=== PATIENT | male | born 1950 | race Caucasian/White ===

== ENCOUNTER 2019-09-28 11:03 | Outpatient (CLI) | payer OTHER, SELFPAY ==
[2019-09-28 11:55] LABS: Basophils # 0.1 10^3/uL (0.0-0.1); Basophils % 0.6 %; Eosinophils # 0.9 10^3/uL (0.0-0.8); Eosinophils % 6.4 %; Hematocrit 45.6 % (42.0-52.0); Lymphocytes # 4.5 10^3/uL (0.8-4.8); Mean Corpuscular HGB Conc 30.7 g/dL (30.0-36.0); Mean Corpuscular Hemoglobin 29.4 pg (28.0-34.0); Mean Corpuscular Volume 95.8 fL (80-94); Monocytes # 0.9 10^3/uL (0.2-0.9); Monocytes % 6.7 %; Neutrophils # 7.2 10^3/uL (1.8-7.7); Neutrophils % 52.9 %; Nucleated Red Blood Cells % 0 %; Platelet Count 412 10^3/cmm (130-400); Red Blood Count 4.76 10^6/uL (4.1-5.3); Red Cell Distribution Width 13.8 % (12.1-15.1); White Blood Count 13.5 10^3/uL (4.0-10.0)
--- NOTE | 2019-09-28 15:57 | ONC FU_ITS ---
Dr. Augustine follow up note Patient: Frankie Corcoran Unit #: [id number]: 1950 Dicatated By: Debby Augustine M.D.Date of Visit:Sep 28, 2019 Onc Med Follow-up/Prog Note History of Present Illness: Mr. 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 Patient denies any night sweats, patient denies any fever chills, denies any weight loss, denies any left abdominal fullness or discomfort, denies any peripheral lymphadenopathy denies any history of jaundice, denies any history of petechiae or ecchymosis. Has history of chronic arthritis Involving back otherwise no small joint involvement Abdominal sonogram done on 07/01/2019 showed no splenomegaly. Moderate hepatomegaly with mild steatosis. Came for follow-up, denies any specific complaints, no fever or chills, no nausea vomiting, no night sweats, no nosebleed or gum bleeding no petechia or ecchymosis, appetite is good. No peripheral lymphadenopathy. Medications: Aspirin Adult 1 Tablet (of 325 mg) Oral daily, Atorvastatin Calcium 0.5 Tablet (of 80 mg) Oral daily, Cholecalciferol 1 Tablet (of 2000 Units) Oral daily, Fish Oil 1 Capsule (of 1000 mg) Oral b.i.d., Gabapentin 1 Capsule (of 300 mg) Oral t.i.d., Loratadine 1 Tablet (of 10 mg) Oral daily, metFORMIN HCl 1 Tablet (of 1000 mg) Oral b.i.d., NovoLOG Mix 70/30 60 Units (of (70-30) 100 Units/mL) Subcutaneous ac pm, NovoLOG Mix 70/30 90 Units (of (70-30) 100 Units/mL) Subcutaneous every am, Prazosin HCl 1 Capsule (of 1 mg) Oral at bedtime, Salicylic Acid 1 (17 %) Gel (jelly) Topical daily, Sertraline HCl 1.5 Tablet (of 100 mg) Oral daily, Urea 1 (10 %) Cream Topical b.i.d. Allergies: No Known Allergies. Review of Systems: Constitutional - Appetite is good and weight is stable. No fever, chills, hot flashes. Positive for occasional night sweats. Energy level is good today, ENMT - No sinus congestion/drainage. No mouth sores. No difficulty swallowing. Positive for sore throat, Hematologic/Lymphatic - Pt reports easy bruising, Respiratory - Positive for shortness of breath. No cough. No pleuritic pain or hemoptysis, Cardiovascular - No angina pain. No palpitations, Gastrointestinal - No nausea or vomiting. No heartburn or acid reflux. No diarrhea or constipation. No blood in the stool or black stools, Genitourinary (M) - No dysuria or hematuria. No urinary frequency. No urgency or incontinence, Musculoskeletal - Positive for joint pain, Neurologic - No headache. Positive for dizziness and numbness in extremities, Psychiatric - No anxiety or depression. Positive for insomnia. Vital Signs: Performed on Sep 28, 2019 13:29 Height - 66.00 in Weight - 262.2 lbs (LOW) BSA - 2.24 sq.m BMI - 42.32 (HIGH) Temperature - 98.0 F (LOW) Pulse - 100 /min Respiration - 24 /min BP - 134/62 mm(hg) O2 Sat - 95 % (LOW) Pain - 0 Performance Status: 0 - Fully active, able to carry on all predisease activities without restrictions. (ECOG) Physical Examination: ENMT - No oral exudates, ulcers, masses, thrush or mucositis. Oropharynx clear. Tongue normal, Respiratory - Lungs are clear to auscultation without rhonchi or wheezing, Cardiovascular - Regular rate and rhythm of heart, Abdomen - Non-tender, non-distended,Good bowel sounds. No guarding or rebound tenderness. No pulsatile masses, Extremities - no edema. Lab/Imaging: Test performed on Jul 01, 2019 09:15 LDH (Total) 177 U/L Sodium 140 mmol/L Potassium 4.6 mmol/L Chloride 100 mmol/L CO2 28 mmol/L Anion Gap 16.6 BUN 15 mg/dL Creatinine 1.0 mg/dL Cr Clearance (Est) 118.6900 mL/min eGFR 74.8 mL/min Glucose 236 mg/dl Calcium 9.1 mg/dL Protein, Total 6.7 g/dL Albumin 4.7 g/dL Globulin 2.0 gm/dL Bilirubin, Total 0.3 mg/dL ALT (SGPT) 20 U/L AST (SGOT) 22 U/L Alkaline Phosphatase 115 U/L WBC 14.5 10 3/uL RBC 4.95 10 6/uL HGB 15.0 g/dL HCT 46.9 % MCV 94.7 fl MCH 30.3 pg MCHC 32.0 g/dl RDW 13.8 % Platelet Count 409 10 3/cmm MPV 10.5 fl Neutrophils 8.2 10 3/uL Lymphocytes 4.5 10 3/uL Monocytes 0.9 10 3/uL Eosinophils 0.9 10 3/uL Basophils 0.1 10 3/uL Neutrophil % 56.1 % Lymphocyte % 30.9 % Monocyte % 6.3 % Eosinophil % 5.9 % Basophils % 0.5 % 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 Melanocytes are proportionately decreased but exhibit immunophenotypic evidence of full maturation with no detectable aberrant marker expression. 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 TCRG T-cell receptor gamma gene detected by PCR, consistent with presence of clonal T-cell population except with immature lymphoid malignancies where clonal TCRG rearrangements may recur in other lineages In nonneoplastic tissue TCRG gene rearrangement is negative but false positive can occasionally be seen in autoimmune disease, and reactive T-cell expansionin blood CBC done on 03/06/2019 showed white blood count 16,000 hemoglobin 15.7 crit 48.9 platelets 444,000 absolute lymphocyte count 5.8, absolute neutrophil count 7.94 Plan: Discussed with patient regarding his labs white blood count 13.5k compared to 14.5k on 07/01/2019, hemoglobin 14 g hematocrit 45.6 platelets 412,000 with normal differential, or blurred flow cytometry is pending Clinically, patient is doing well with no new signs symptoms and his follow-up lab workup showed normal hemoglobin and platelet count and improved total white blood cell count. Whole blood flow cytometry was done today and is pending. Patient return to clinic in 3 months with CBC with differential and once we have flow cytometry results available were discussed with patient on the phone and if needed we will see him early Signed By: Debby Augustine M.D. <<Signature on File>>
== END 2019-09-28 11:04 | disposition home or self-care (01) ==
PROVIDERS: Family Provider Internal Medicine; PCP Internal Medicine; Visit Provider Internal Medicine Hematology & Oncology
DX: D47.9 Neoplasm of uncertain behavior of lymphoid, hematopoietic and related tissue, unspecified (principal)
CPT/HCPCS: 85025; G0463

== ENCOUNTER 2019-12-21 15:01 | Outpatient (CLI) | payer OTHER, SELFPAY | END 2019-12-21 15:02 | disposition home or self-care (01) | PROVIDERS: PCP Internal Medicine; Visit Provider Internal Medicine Hematology & Oncology | DX: C91.Z0 Other lymphoid leukemia not having achieved remission (principal); D72.829 Elevated white blood cell count, unspecified | CPT/HCPCS: 36415 ==

== ENCOUNTER 2019-12-28 08:15 | Outpatient (CLI) | payer OTHER, SELFPAY ==
[2019-12-28 13:54] LABS: Hematocrit 45.8 % (42.0-52.0); Hemoglobin 14.1 g/dL (11.7-16.6); Mean Corpuscular HGB Conc 30.8 g/dL (30.0-36.0); Mean Corpuscular Hemoglobin 29.8 pg (28.0-34.0); Mean Corpuscular Volume 96.8 fL (80-94); Mean Platelet Volume 11.6 fL (7.4-10.4); Platelet Count 397 10^3/cmm (130-400); Red Blood Count 4.73 10^6/uL (4.1-5.3)
[2019-12-28 14:44] LABS: Absolute Eosinophils 0.3 10^3/cmm (0.0-0.7); Absolute Segmented Neutrophil 7.5 10/cmm (1.6-7.1); Band Neutrophils Absolute 0.1 10^3/cmm (0.0-1.2); Eosinophils 3 %; Lymphocytes 30 %; Segmented Neutrophils 58 %; Total Cells Counted 100 (0-100)
[2019-12-28 14:45] LABS: Absolute Neutrophil 7.7 10^3/cmm (1.4-6.5); Platelet Estimate Normal (Normal)
== END 2019-12-28 08:16 | disposition home or self-care (01) ==
LOC: ONCMED 13:46
PROVIDERS: PCP Internal Medicine; Visit Provider Internal Medicine Hematology & Oncology
DX: C91.Z0 Other lymphoid leukemia not having achieved remission (principal); D72.829 Elevated white blood cell count, unspecified
CPT/HCPCS: 85007; 85027

== ENCOUNTER 2020-02-02 08:34 | Outpatient (CLI) | payer OTHER, SELFPAY ==
[2020-02-02 09:08] LABS: Hematocrit 45.7 % (42.0-52.0); Hemoglobin 14.3 g/dL (11.7-16.6); Mean Corpuscular HGB Conc 31.3 g/dL (30.0-36.0); Mean Corpuscular Hemoglobin 30.3 pg (28.0-34.0); Mean Corpuscular Volume 96.8 fL (80-94); Mean Platelet Volume 11.1 fL (7.4-10.4); Platelet Count 352 10^3/cmm (130-400); Red Blood Count 4.72 10^6/uL (4.1-5.3); White Blood Count 12.2 10^3/uL (4.0-10.0)
[2020-02-02 10:35] LABS: Absolute Eosinophils 1.4 10^3/cmm (0.0-0.7); Absolute Neutrophil 6.3 10^3/cmm (1.4-6.5); Absolute Segmented Neutrophil 5.2 10/cmm (1.6-7.1); Band Neutrophils Absolute 1.1 10^3/cmm (0.0-1.2); Eosinophils 12 %; Giant Platelets Trace; Lymphocytes 28 %; Platelet Estimate Normal (Normal); Segmented Neutrophils 43 %; Total Cells Counted 100 (0-100)
--- NOTE | 2020-02-02 11:47 | ONC FU_ITS ---
Dr. Augustine follow up note Patient: Frankie Corcoran Unit #: [id number]: 1950 Dicatated By: Debby Augustine M.D.Date of Visit:Feb 02, 2020 Onc Med Follow-up/Prog Note History of Present Illness: Mr. 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 Repeat whole blood flow cytometry done on January 04, 2020 showed abnormal T-cell population, is not entirely specific. Could be T-cell lymphoproliferative process but reactive etiology such as viral infection, tickborne illness, or drug effect cannot be entirely excluded Patient denies any night sweats, patient denies any fever chills, denies any weight loss, denies any left abdominal fullness or discomfort, denies any peripheral lymphadenopathy denies any history of jaundice, denies any history of petechiae or ecchymosis. Has history of chronic arthritis Involving back otherwise no small joint involvement Abdominal sonogram done on 07/01/2019 showed no splenomegaly. Moderate hepatomegaly with mild steatosis. Came for follow-up, patient denies any specific complaints, no fever chills, no nausea or vomiting, no diarrhea or constipation, no night sweats, no peripheral lymphadenopathy or abdominal fullness, as per patient recently underwent testing for tickborne sickness and it was ruled out. Medications: Aspirin Adult 1 Tablet (of 325 mg) Oral daily, Atorvastatin Calcium 0.5 Tablet (of 80 mg) Oral daily, Cholecalciferol 1 Tablet (of 2000 Units) Oral daily, Fish Oil 1 Capsule (of 1000 mg) Oral b.i.d., Gabapentin 1 Capsule (of 300 mg) Oral t.i.d., Loratadine 1 Tablet (of 10 mg) Oral daily, metFORMIN HCl 1 Tablet (of 1000 mg) Oral b.i.d., NovoLOG Mix 70/30 60 Units (of (70-30) 100 Units/mL) Subcutaneous ac pm, NovoLOG Mix 70/30 90 Units (of (70-30) 100 Units/mL) Subcutaneous every am, Prazosin HCl 1 Capsule (of 1 mg) Oral at bedtime, Salicylic Acid 1 (17 %) Gel (jelly) Topical daily, Sertraline HCl 1.5 Tablet (of 100 mg) Oral daily, Urea 1 (10 %) Cream Topical b.i.d. Allergies: No Known Allergies. Review of Systems: Constitutional - Appetite is good and weight is stable. No fever, chills, hot flashes. Positive for occasional night sweats. Energy level is good, ENMT - No sinus congestion/drainage. No mouth sores. No difficulty swallowing. Positive for sore throat, Hematologic/Lymphatic - Pt reports easy bruising, Respiratory - Positive for shortness of breath. No cough. No pleuritic pain or hemoptysis, Cardiovascular - No angina pain. No palpitations, Gastrointestinal - No nausea or vomiting. No heartburn or acid reflux. No diarrhea or constipation. No blood in the stool or black stools, Genitourinary (M) - No dysuria or hematuria. No urinary frequency. No urgency or incontinence, Musculoskeletal - Positive for joint pain, Neurologic - No headache. Positive for dizziness and numbness in extremities, Psychiatric - No anxiety or depression. Positive for insomnia. Vital Signs: Performed on Feb 02, 2020 09:54 Height - 66.00 in Weight - 262.2 lbs BSA - 2.24 sq.m BMI - 42.32 (HIGH) Temperature - 97.5 F (LOW) Pulse - 96 /min Respiration - 26 /min BP - 146/79 mm(hg) (HIGH) O2 Sat - 96 % Pain - 0 Performance Status: 0 - Fully active, able to carry on all predisease activities without restrictions. (ECOG) Physical Examination: ENMT - No mouth sores no thrush or jaundice, Respiratory - Lungs are clear, Cardiovascular - Regular rate and rhythm of heart, Abdomen - Soft, bowel sounds present, Extremities - No visible edema, chronic mild rash over left upper extremity otherwise no peripheral lymphadenopathy. Lab/Imaging: Test performed on Dec 28, 2019 08:15 WBC 13.0 10 3/uL RBC 4.73 10 6/uL HGB 14.1 g/dL HCT 45.8 % MCV 96.8 fL MCH 29.8 pg MCHC 30.8 g/dL RDW 14.0 % Platelet Count 397 10 3/cmm MPV 11.6 fL Manual Neutrophils Abs 7.7 10 3/cmm Manual Bands Abs 0.1 10 3/cmm Manual Monocytes Abs 1.0 10 3/cmm Manual Eosinophils Abs 0.3 10 3/cmm Manual Bands % 1.0 % Manual Lymphs % 30 % Manual Monos % 8.0 % Total Cells Counted 100 Test performed on Sep 28, 2019 11:10 Neutrophils 7.2 10 3/uL Lymphocytes 4.5 10 3/uL Monocytes 0.9 10 3/uL Eosinophils 0.9 10 3/uL Basophils 0.1 10 3/uL Neutrophil % 52.9 % Lymphocyte % 33.0 % Monocyte % 6.7 % Eosinophil % 6.4 % Basophils % 0.6 % 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 Melanocytes are proportionately decreased but exhibit immunophenotypic evidence of full maturation with no detectable aberrant marker expression. 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 TCRG T-cell receptor gamma gene detected by PCR, consistent with presence of clonal T-cell population except with immature lymphoid malignancies where clonal TCRG rearrangements may recur in other lineages In nonneoplastic tissue TCRG gene rearrangement is negative but false positive can occasionally be seen in autoimmune disease, and reactive T-cell expansionin blood CBC done on 03/06/2019 showed white blood count 16,000 hemoglobin 15.7 crit 48.9 platelets 444,000 absolute lymphocyte count 5.8, absolute neutrophil count 7.94 Plan: Discussed with patient regarding his labs white blood count 12.2, compared to 14.5 on July 01, 2019, hemoglobin 14.3 crit 45.7 platelets 352,000, Repeat whole blood flow cytometry done on January 04, 2020 showed persistent abnormal T-cell population approximately 5% of total cellularity, possibilities including T-cell lymphoproliferative disorder versus reactive, such as underlying viral infection, tickborne illness, drug effect Clinically, patient is doing well with no B symptoms or signs suggestive of underlying infection, patient said recently underwent testing for tickborne illness and it was negative. His repeat whole blood flow cytometry persistent abnormal T cells but now 5% compared to 37% earlier and etiology remained inconclusive. As far as chronic left upper arm skin rash is concerned, patient said he had seen dermatology for this and skin biopsy was done which showed no significant abnormality Discussed with patient, regarding further plan, as percentage of abnormal T-cell has gone down significantly on repeat whole blood flow cytometry, either repeat whole blood flow cytometry in 2 to 3 months or referral to tertiary care center for further testing including molecular/cytogenetics. Patient prefer second opinion. At this point will refer him to lymphoma clinic at [place] in [place] and patient will return to clinic 1 week after his visit to [place]. Signed By: Debby Augustine M.D. <<Signature on File>>
== END 2020-02-02 08:35 | disposition home or self-care (01) ==
LOC: ONCMED 08:36
PROVIDERS: Visit Provider Internal Medicine Hematology & Oncology
DX: C91.Z0 Other lymphoid leukemia not having achieved remission (principal); R16.0 Hepatomegaly, not elsewhere classified; M19.90 Unspecified osteoarthritis, unspecified site; Z79.82 Long term (current) use of aspirin
CPT/HCPCS: 85007; 85027; G0463

== ENCOUNTER 2020-03-03 12:25 | Outpatient (CLI) | payer OTHER, SELFPAY ==
[2020-03-03 13:00] LABS: Basophils # 0.1 10^3/uL (0.0-0.1); Basophils % 0.6 %; Eosinophils # 0.8 10^3/uL (0.0-0.8); Eosinophils % 5.3 %; Hematocrit 45.2 % (42.0-52.0); Hemoglobin 14.4 g/dL (11.7-16.6); Lymphocytes # 4.7 10^3/uL (0.8-4.8); Lymphocytes % 32.4 %; Mean Corpuscular HGB Conc 31.9 g/dL (30.0-36.0); Mean Corpuscular Hemoglobin 30.4 pg (28.0-34.0); Mean Corpuscular Volume 95.6 fL (80-94); Mean Platelet Volume 10.8 fL (7.4-10.4); Monocytes # 1.1 10^3/uL (0.2-0.9); Monocytes % 7.4 %; Neutrophils # 7.84 10^3/uL (1.8-7.7); Neutrophils % 53.9 %; Nucleated Red Blood Cells % 0 %; Platelet Count 385 10^3/cmm (130-400); Red Blood Count 4.73 10^6/uL (4.1-5.3); Red Cell Distribution Width 13.8 % (12.1-15.1); White Blood Count 14.6 10^3/uL (4.0-10.0)
--- NOTE | 2020-03-03 15:18 | ONC FU_ITS ---
Dr. Augustine follow up note Patient: Frankie Corcoran Unit #: [id number]: 1950 Dicatated By: Debby Augustine M.D.Date of Visit:Mar 03, 2020 Onc Med Follow-up/Prog Note History of Present Illness: Mr. 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 Repeat whole blood flow cytometry done on January 04, 2020 showed abnormal T-cell population, is not entirely specific. Could be T-cell lymphoproliferative process but reactive etiology such as viral infection, tickborne illness, or drug effect cannot be entirely excluded Patient denies any night sweats, patient denies any fever chills, denies any weight loss, denies any left abdominal fullness or discomfort, denies any peripheral lymphadenopathy denies any history of jaundice, denies any history of petechiae or ecchymosis. Has history of chronic arthritis Involving back otherwise no small joint involvement Abdominal sonogram done on 07/01/2019 showed no splenomegaly. Moderate hepatomegaly with mild steatosis. as per patient recently underwent testing for tickborne sickness and it was ruled out. , Patient was referred to lymphoma and leukemia clinic at [facility] he was seen by Dr. Osullivan, on February 17, 2020 and she did further testing including flow cytometry and PCR by NGS and PCR results did show a clonal population but only represented 3% of his lymphocyte gate (absolute lymphocyte count at the time was 3.3 corresponding to an absolute clonal population of 165 cells) that would not meet criteria for LGL. Because of intermittent monocytosis, her impression this abnormality could be reactive. And she recommended that if abnormalities in his blood persist, consider bone marrow biopsy to exclude other myelo proliferative neoplasms e.g. chronic phase CML or EBV PCR. As LGL is associated with STAT3 mutations which could be checked by next nation sequencing, if needed. Otherwise recommend observation at this point Came for follow-up, denies any specific complaints except not getting enough sleep at night and feeling tired during daytime, findings consistent with, considering his weight and abdominal girth, with sleep apnea, as per patient, sleep study is under consideration. Otherwise denies any night sweats denies any recurrent fever denies any weight loss denies any peripheral lymphadenopathy, denies any abdominal fullness. Medications: Aspirin Adult 1 Tablet (of 325 mg) Oral daily, Atorvastatin Calcium 0.5 Tablet (of 80 mg) Oral daily, Cholecalciferol 1 Tablet (of 2000 Units) Oral daily, Fish Oil 1 Capsule (of 1000 mg) Oral b.i.d., Gabapentin 1 Capsule (of 300 mg) Oral t.i.d., Loratadine 1 Tablet (of 10 mg) Oral daily, metFORMIN HCl 1 Tablet (of 1000 mg) Oral b.i.d., NovoLOG Mix 70/30 60 Units (of (70-30) 100 Units/mL) Subcutaneous ac pm, NovoLOG Mix 70/30 90 Units (of (70-30) 100 Units/mL) Subcutaneous every am, Prazosin HCl 1 Capsule (of 1 mg) Oral at bedtime, Salicylic Acid 1 (17 %) Gel (jelly) Topical daily, Sertraline HCl 1.5 Tablet (of 100 mg) Oral daily, Urea 1 (10 %) Cream Topical b.i.d. Allergies: No Known Allergies. Review of Systems: Review of Systems is not available for this patient. Vital Signs: Performed on Mar 03, 2020 13:47 Height - 66.00 in Weight - 263.2 lbs (HIGH) BSA - 2.25 sq.m BMI - 42.48 (HIGH) Temperature - 97.8 F (LOW) Pulse - 85 /min Respiration - 24 /min BP - 135/84 mm(hg) O2 Sat - 93 % (LOW) Pain - 0 Performance Status: 0 - Fully active, able to carry on all predisease activities without restrictions. (ECOG) Physical Examination: ENMT - No mouth sores, no thrush, no jaundice, Respiratory - Lungs are clear, Cardiovascular - Regular rate and rhythm of heart, Abdomen - Soft, bowel sounds present, Extremities - No visible edema or rash, No peripheral lymphadenopathy. Lab/Imaging: Test performed on Feb 02, 2020 08:50 WBC 12.2 10 3/uL RBC 4.72 10 6/uL HGB 14.3 g/dL HCT 45.7 % MCV 96.8 fL MCH 30.3 pg MCHC 31.3 g/dL RDW 14.0 % Platelet Count 352 10 3/cmm MPV 11.1 fL Manual Neutrophils Abs 6.3 10 3/cmm Manual Bands Abs 1.1 10 3/cmm Manual Monocytes Abs 1.0 10 3/cmm Manual Eosinophils Abs 1.4 10 3/cmm Manual Basophils Abs 0.0 10 3/cmm Manual Bands % 9.0 % Manual Lymphs % 28 % Manual Monos % 8.0 % Manual Basos % 0.0 % Total Cells Counted 100 Test performed on Sep 28, 2019 11:10 Neutrophils 7.2 10 3/uL Lymphocytes 4.5 10 3/uL Monocytes 0.9 10 3/uL Eosinophils 0.9 10 3/uL Basophils 0.1 10 3/uL Neutrophil % 52.9 % Lymphocyte % 33.0 % Monocyte % 6.7 % Eosinophil % 6.4 % Basophils % 0.6 % Impression: Reactive 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 Melanocytes are proportionately decreased but exhibit immunophenotypic evidence of full maturation with no detectable aberrant marker expression. 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 TCRG T-cell receptor gamma gene detected by PCR, consistent with presence of clonal T-cell population except with immature lymphoid malignancies where clonal TCRG rearrangements may recur in other lineages In nonneoplastic tissue TCRG gene rearrangement is negative but false positive can occasionally be seen in autoimmune disease, and reactive T-cell expansionin blood CBC done on 03/06/2019 showed white blood count 16,000 hemoglobin 15.7 crit 48.9 platelets 444,000 absolute lymphocyte count 5.8, absolute neutrophil count 7.94 Plan: Discussed with patient regarding his labs white blood count 14.6 hemoglobin 14.4 hematocrit 45.3 platelets 385,000 with a normal differential Clinically, patient is doing well with no B symptoms, no peripheral lymphadenopathy or organomegaly, his follow-up CBC showed intermittent leukocytosis/lymphocytosis etiology unclear reactive versus early myeloproliferative disorder, patient was referred to lymphoma/leukemia clinic at [facility] where he saw Dr. Osullivan on February 17, 2020 and flow cytometry and TCR by NGS was repeated that day which confirmed a clonal population but only 3% of his lymphocyte gate e.g. absolute clonal population of 165 cell, that would not meet criteria for LGL. So it could be reactive and in case there is a progression or this abnormality persist, bone marrow evaluation to exclude other myeloproliferative neoplasms like chronic phase CML or EBV PCR was suggested, As LGL is associated with STAT3 mutations, if needed [employer] sequencing was recommended to confirm. At this point, patient has very mild but intermittent leukocytosis/lymphocytosis with a normal hemoglobin/platelets and no other symptoms or signs suggestive of myeloproliferative/lymphoproliferative disorder, will continue to monitor and observe, patient return to clinic in 6 months with CBC with differential, patient was advised to call in case he has any night sweats, recurrent fever or unintentional weight loss or peripheral lymphadenopathy. He was also advised to follow-up with PMD regarding sleep study to confirm sleep apnea, as CPAP machine may be helpful. Signed By: Debby Augustine M.D. <<Signature on File>>
== END 2020-03-03 12:26 | disposition home or self-care (01) ==
LOC: ONCMED 12:27
PROVIDERS: Visit Provider Internal Medicine Hematology & Oncology
DX: D72.820 Lymphocytosis (symptomatic) (principal); Z72.820 Sleep deprivation
CPT/HCPCS: 85025; G0463

== ENCOUNTER 2020-05-24 20:00 | Outpatient (CLI) | payer OTHER, SELFPAY | END 2020-05-24 20:01 | disposition home or self-care (01) | LOC: SLEEP 05-25 10:58 | PROVIDERS: Visit Provider Family Medicine | DX: G47.30 Sleep apnea, unspecified (principal) | CPT/HCPCS: 95811 ==

== ENCOUNTER 2020-09-16 07:45 | Outpatient (CLI) | payer OTHER, SELFPAY ==
[2020-09-16 08:18] LABS: Basophils # 0.1 10^3/uL (0.0-0.1); Basophils % 0.7 %; Eosinophils # 0.9 10^3/uL (0.0-0.8); Eosinophils % 6.3 %; Hematocrit 45.7 % (42.0-52.0); Hemoglobin 14.6 g/dL (11.7-16.6); Lymphocytes # 5.8 10^3/uL (0.8-4.8); Mean Corpuscular HGB Conc 31.9 g/dL (30.0-36.0); Mean Corpuscular Hemoglobin 30.2 pg (28.0-34.0); Mean Corpuscular Volume 94.6 fL (80-94); Mean Platelet Volume 11.1 fL (7.4-10.4); Monocytes # 1.1 10^3/uL (0.2-0.9); Monocytes % 7.5 %; Neutrophils # 6.86 10^3/uL (1.8-7.7); Neutrophils % 46.2 %; Nucleated Red Blood Cells % 0 %; Platelet Count 401 10^3/cmm (130-400); Red Blood Count 4.83 10^6/uL (4.1-5.3); Red Cell Distribution Width 13.8 % (12.1-15.1); White Blood Count 14.9 10^3/uL (4.0-10.0)
[2020-09-16 09:39] LABS: Slide Review Slide Review Perform
--- NOTE | 2020-09-16 10:02 | ONC FU_ITS ---
Dr. Augustine follow up note Patient: Frankie Corcoran Unit #: [id number]: 1950 Dicatated By: Debby Augustine M.D.Date of Visit:Sep 16, 2020 Onc Med Follow-up/Prog Note History of Present Illness: Mr. 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 Repeat whole blood flow cytometry done on January 04, 2020 showed abnormal T-cell population, is not entirely specific. Could be T-cell lymphoproliferative process but reactive etiology such as viral infection, tickborne illness, or drug effect cannot be entirely excluded Patient denies any night sweats, patient denies any fever chills, denies any weight loss, denies any left abdominal fullness or discomfort, denies any peripheral lymphadenopathy denies any history of jaundice, denies any history of petechiae or ecchymosis. Has history of chronic arthritis Involving back otherwise no small joint involvement Abdominal sonogram done on 07/01/2019 showed no splenomegaly. Moderate hepatomegaly with mild steatosis. as per patient recently underwent testing for tickborne sickness and it was ruled out. , Patient was referred to lymphoma and leukemia clinic at [facility] he was seen by Dr. Osullivan, on February 17, 2020 and she did further testing including flow cytometry and PCR by NGS and PCR results did show a clonal population but only represented 3% of his lymphocyte gate (absolute lymphocyte count at the time was 3.3 corresponding to an absolute clonal population of 165 cells) that would not meet criteria for LGL. Because of intermittent monocytosis, her impression this abnormality could be reactive. And she recommended that if abnormalities in his blood persist, consider bone marrow biopsy to exclude other myelo proliferative neoplasms e.g. chronic phase CML or EBV PCR. As LGL is associated with STAT3 mutations which could be checked by next nation sequencing, if needed. Otherwise recommend observation at this point Came for follow-up, denies any specific complaints, no fever chills, no nausea or vomiting, no diarrhea or constipation, no night sweats, no peripheral lymphadenopathy, no weight loss, no recurrent fever patient had his Covid vaccination done Medications: Aspirin Adult 1 Tablet (of 325 mg) Oral daily, Atorvastatin Calcium 0.5 Tablet (of 80 mg) Oral daily, Cholecalciferol 1 Tablet (of 2000 Units) Oral daily, Fish Oil 1 Capsule (of 1000 mg) Oral b.i.d., Gabapentin 1 Capsule (of 300 mg) Oral t.i.d., Loratadine 1 Tablet (of 10 mg) Oral daily, metFORMIN HCl 1 Tablet (of 1000 mg) Oral b.i.d., NovoLOG Mix 70/30 60 Units (of (70-30) 100 Units/mL) Subcutaneous ac pm, NovoLOG Mix 70/30 90 Units (of (70-30) 100 Units/mL) Subcutaneous every am, Prazosin HCl 1 Capsule (of 1 mg) Oral at bedtime, Salicylic Acid 1 (17 %) Gel (jelly) Topical daily, Sertraline HCl 1.5 Tablet (of 100 mg) Oral daily, Urea 1 (10 %) Cream Topical b.i.d. Allergies: No Known Allergies. Review of Systems: Review of Systems is not available for this patient. Vital Signs: Performed on Sep 16, 2020 09:48 Height - 66.00 in Weight - 267.4 lbs (HIGH) BSA - 2.26 sq.m BMI - 43.16 (HIGH) Temperature - 97.6 F (LOW) Pulse - 108 /min (HIGH) Respiration - 18 /min BP - 131/79 mm(hg) O2 Sat - 91 % (LOW) Pain - 0 Performance Status: 0 - Fully active, able to carry on all predisease activities without restrictions. (ECOG) Physical Examination: ENMT - No mouth sores, no thrush, no jaundice, no cervical lymphadenopathy, Respiratory - Lungs are clear to auscultation, Cardiovascular - Regular rate and rhythm of heart, Abdomen - Soft, bowel sounds present, Extremities - No visible edema. Lab/Imaging: Most recent lab results are not available for this patient. 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 Melanocytes are proportionately decreased but exhibit immunophenotypic evidence of full maturation with no detectable aberrant marker expression. 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 TCRG T-cell receptor gamma gene detected by PCR, consistent with presence of clonal T-cell population except with immature lymphoid malignancies where clonal TCRG rearrangements may recur in other lineages In nonneoplastic tissue TCRG gene rearrangement is negative but false positive can occasionally be seen in autoimmune disease, and reactive T-cell expansionin blood CBC done on 03/06/2019 showed white blood count 16,000 hemoglobin 15.7 crit 48.9 platelets 444,000 absolute lymphocyte count 5.8, absolute neutrophil count 7.94 Plan: Discussed with patient regarding his labs white blood count 14.9 compared to 14.6 in February 2020 hemoglobin 14.6 hematocrit 45.7 platelets 401,000 with absolute lymphocyte count 5800 compared to 4700 previously Clinically, patient is doing well with no new signs symptoms suggestive of disease progression, no B symptoms, no peripheral lymphadenopathy, could not feel his spleen because of her obesity his lab work-up is stable with a persistent mild leukocytosis/lymphocytosis, his absolute lymphocyte count has gone up to 5800 from 4700 previously, will continue to monitor, he will return to clinic in 6 months with CBC CMP and LDH. Patient was advised to call us in case he has any of the B symptoms like drenching night sweats or recurrent fever without infection or unexplained weight loss or any peripheral lymphadenopathy. Signed By: Debby Augustine M.D. <<Signature on File>>
== END 2020-09-16 07:46 | disposition home or self-care (01) ==
LOC: ONCMED 07:48
PROVIDERS: PCP Family Medicine; Visit Provider Internal Medicine Hematology & Oncology
DX: C91.Z0 Other lymphoid leukemia not having achieved remission (principal)
CPT/HCPCS: 85025; 99214

== ENCOUNTER 2021-03-20 11:27 | Outpatient (CLI) | payer OTHER, SELFPAY ==
[2021-03-20 12:34] LABS: Albumin Level 3.8 g/dL (3.5-5.2); Alkaline Phosphatase 96 IU/L (40-130); Blood Urea Nitrogen 13 mg/dL (8-23); Calcium 9.1 mg/dL (8.5-10.5); Carbon Dioxide 24 mmol/L (22-29); Chloride 104 mmol/L (98-107); Glomerular Filtration Rate 96.1 mL/min (90-130); Glucose 103 mg/dL (65-115); Osmolality Calculated 288 mOsm/kg (285-295); Sodium 139 mmol/L (136-145); Total Bilirubin 0.2 mg/dL (0.15-1.2); Total Protein 6.8 g/dL (6.6-8.7)
[2021-03-20 12:57] LABS: Alanine Aminotransferase 17 U/L (0-41); Aspartate Amino Transferase 22 U/L (0-40); Lactate Dehydrogenase 282 U/L (135-225)
[2021-03-20 13:08] LABS: Basophils # 0.1 10^3/uL (0.0-0.1); Basophils % 0.6 %; Eosinophils # 0.8 10^3/uL (0.0-0.8); Eosinophils % 5.6 %; Hematocrit 45.1 % (42.0-52.0); Hemoglobin 14.8 g/dL (11.7-16.6); Lymphocytes % 34.6 %; Mean Corpuscular HGB Conc 32.8 g/dL (30.0-36.0); Mean Corpuscular Hemoglobin 30.9 pg (28.0-34.0); Mean Corpuscular Volume 94.2 fl (80-94); Mean Platelet Volume 11.4 fL (7.4-10.4); Monocytes % 7.1 %; Neutrophils # 7.47 10^3/uL (1.8-7.7); Neutrophils % 51.8 %; Nucleated Red Blood Cells % 0 %; Platelet Count 409 10^3/cmm (130-400); Red Blood Count 4.79 10^6/uL (4.1-5.3); White Blood Count 14.4 10^3/uL (4.0-10.0)
--- NOTE | 2021-03-20 14:10 | ONC FU_ITS ---
Dr. Augustine follow up note Patient: Frankie Corcoran Unit #: [id number]: [id number] Dicatated By: Debby Augustine M.D.Date of Visit:Mar 20, 2021 Onc Med Follow-up/Prog Note History of Present Illness: Mr. 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 Repeat whole blood flow cytometry done on January 04, 2020 showed abnormal T-cell population, is not entirely specific. Could be T-cell lymphoproliferative process but reactive etiology such as viral infection, tickborne illness, or drug effect cannot be entirely excluded Patient denies any night sweats, patient denies any fever chills, denies any weight loss, denies any left abdominal fullness or discomfort, denies any peripheral lymphadenopathy denies any history of jaundice, denies any history of petechiae or ecchymosis. Has history of chronic arthritis Involving back otherwise no small joint involvement Abdominal sonogram done on 07/01/2019 showed no splenomegaly. Moderate hepatomegaly with mild steatosis. as per patient recently underwent testing for tickborne sickness and it was ruled out. , Patient was referred to lymphoma and leukemia clinic at [facility] he was seen by Dr. Osullivan, on February 17, 2020 and she did further testing including flow cytometry and PCR by NGS and PCR results did show a clonal population but only represented 3% of his lymphocyte gate (absolute lymphocyte count at the time was 3.3 corresponding to an absolute clonal population of 165 cells) that would not meet criteria for LGL. Because of intermittent monocytosis, her impression this abnormality could be reactive. And she recommended that if abnormalities in his blood persist, consider bone marrow biopsy to exclude other myelo proliferative neoplasms e.g. chronic phase CML or EBV PCR. As LGL is associated with STAT3 mutations which could be checked by next nation sequencing, if needed. Otherwise recommend observation at this point Came for follow-up, denies any specific complaints, no fever chills, no nausea or vomiting, no diarrhea constipation, no night sweats, no weight loss, no peripheral lymphadenopathy, no abdominal fullness, no recurrent infections Medications: Aspirin Adult 1 Tablet (of 325 mg) Oral daily, Atorvastatin Calcium 0.5 Tablet (of 80 mg) Oral daily, Cholecalciferol 1 Tablet (of 2000 Units) Oral daily, Fish Oil 1 Capsule (of 1000 mg) Oral b.i.d., Gabapentin 1 Capsule (of 300 mg) Oral t.i.d., Loratadine 1 Tablet (of 10 mg) Oral daily, metFORMIN HCl 1 Tablet (of 1000 mg) Oral b.i.d., NovoLOG Mix 70/30 60 Units (of (70-30) 100 Units/mL) Subcutaneous ac pm, NovoLOG Mix 70/30 90 Units (of (70-30) 100 Units/mL) Subcutaneous every am, Prazosin HCl 1 Capsule (of 1 mg) Oral at bedtime, Salicylic Acid 1 (17 %) Gel (jelly) Topical daily, Sertraline HCl 1.5 Tablet (of 100 mg) Oral daily, Urea 1 (10 %) Cream Topical b.i.d. Allergies: No Known Allergies. Review of Systems: Review of Systems is not available for this patient. Vital Signs: Vitals are not available for this patient. Performance Status: 0 - Fully active, able to carry on all predisease activities without restrictions. (ECOG) Physical Examination: ENMT - No mouth sores, no thrush, no jaundice, no cervical lymphadenopathy, Respiratory - Lungs are clear to auscultation, Cardiovascular - Regular rate and rhythm of heart, Abdomen - Soft, bowel sounds present, Extremities - No visible edema. Lab/Imaging: Most recent lab results are not available for this patient. 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 Melanocytes are proportionately decreased but exhibit immunophenotypic evidence of full maturation with no detectable aberrant marker expression. 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 TCRG T-cell receptor gamma gene detected by PCR, consistent with presence of clonal T-cell population except with immature lymphoid malignancies where clonal TCRG rearrangements may recur in other lineages In nonneoplastic tissue TCRG gene rearrangement is negative but false positive can occasionally be seen in autoimmune disease, and reactive T-cell expansionin blood CBC done on 03/06/2019 showed white blood count 16,000 hemoglobin 15.7 crit 48.9 platelets 444,000 absolute lymphocyte count 5.8, absolute neutrophil count 7.94 Plan: Discussed with patient regarding his labs white blood count 14.4 compared to 14.9 in August 2020 hemoglobin 14.8 hematocrit 45.1 platelets 409,000 absolute lymphocyte count 5000, Compared to 5800 in August 2020, CMP within normal limits LDH 282 Clinically, patient is doing well with no B symptoms, no peripheral lymphadenopathy, could not feel spleen because of obesity, his follow-up lab work-up shows mild isolated leukocytosis/lymphocytosis, stable. But mildly elevated LDH otherwise CMP is within normal range we will continue to monitor patient will return to clinic in 6 months with CBC CMP and LDH, patient was advised to call in case he has any of those B symptoms like drenching night sweats, recurrent fever without infection, or any weight loss. Signed By: Debby Augustine M.D. <<Signature on File>>
== END 2021-03-20 11:28 | disposition home or self-care (01) ==
PROVIDERS: PCP Family Medicine; Visit Provider Internal Medicine Hematology & Oncology
DX: D47.Z9 Other specified neoplasms of uncertain behavior of lymphoid, hematopoietic and related tissue (principal)
CPT/HCPCS: 36415; 80053; 83615; 85025; 99214

== ENCOUNTER 2021-09-27 13:20 | Outpatient (CLI) | payer OTHER, SELFPAY ==
[2021-09-27 14:01] LABS: Basophils # 0.1 10^3/uL (0.0-0.1); Basophils % 0.5 %; Eosinophils # 0.5 10^3/uL (0.0-0.8); Eosinophils % 4.3 %; Hematocrit 45.9 % (42.0-52.0); Hemoglobin 14.8 g/dL (11.7-16.6); Lymphocytes # 3.2 10^3/uL (0.8-4.8); Lymphocytes % 26.6 %; Mean Corpuscular HGB Conc 32.2 g/dL (30.0-36.0); Mean Corpuscular Hemoglobin 30.5 pg (28.0-34.0); Mean Corpuscular Volume 94.4 fl (80-94); Mean Platelet Volume 10.7 fL (7.4-10.4); Monocytes % 8.2 %; Nucleated Red Blood Cells % 0 %; Platelet Count 491 10^3/cmm (130-400); Red Blood Count 4.86 10^6/uL (4.1-5.3); Red Cell Distribution Width 13.8 % (12.1-15.1)
[2021-09-27 14:28] LABS: Alanine Aminotransferase 20 U/L (0-41); Alkaline Phosphatase 114 IU/L (40-130); Anion Gap 14.5 (5-19); Aspartate Amino Transferase 22 U/L (0-40); Blood Urea Nitrogen 15 mg/dL (8-23); Calcium 9.5 mg/dL (8.5-10.5); Carbon Dioxide 25 mmol/L (22-29); Chloride 106 mmol/L (98-107); Globulin 3.1 g/dL (1.3-4.6); Glomerular Filtration Rate 96.1 mL/min (90-130); Glucose 110 mg/dL (65-115); Lactate Dehydrogenase 156 U/L (135-225); Osmolality Calculated 293 mOsm/kg (285-295); Potassium 4.5 mmol/L (3.5-5.1); Sodium 141 mmol/L (136-145); Total Bilirubin 0.2 mg/dL (0.15-1.2); Total Protein 7.1 g/dL (6.6-8.7)
--- NOTE | 2021-09-27 17:10 | ONC FU_ITS ---
Dr. Augustine follow up note Patient: Frankie Corcoran Unit #: [id number]: 1950 Dicatated By: Debby Augustine M.D.Date of Visit:Sep 27, 2021 Onc Med Follow-up/Prog Note History of Present Illness: Mr. 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 Repeat whole blood flow cytometry done on January 04, 2020 showed abnormal T-cell population, is not entirely specific. Could be T-cell lymphoproliferative process but reactive etiology such as viral infection, tickborne illness, or drug effect cannot be entirely excluded Patient denies any night sweats, patient denies any fever chills, denies any weight loss, denies any left abdominal fullness or discomfort, denies any peripheral lymphadenopathy denies any history of jaundice, denies any history of petechiae or ecchymosis. Has history of chronic arthritis Involving back otherwise no small joint involvement Abdominal sonogram done on 07/01/2019 showed no splenomegaly. Moderate hepatomegaly with mild steatosis. as per patient recently underwent testing for tickborne sickness and it was ruled out. , Patient was referred to lymphoma and leukemia clinic at [facility] he was seen by Dr. Osullivan, on February 17, 2020 and she did further testing including flow cytometry and PCR by NGS and PCR results did show a clonal population but only represented 3% of his lymphocyte gate (absolute lymphocyte count at the time was 3.3 corresponding to an absolute clonal population of 165 cells) that would not meet criteria for LGL. Because of intermittent monocytosis, her impression this abnormality could be reactive. And she recommended that if abnormalities in his blood persist, consider bone marrow biopsy to exclude other myelo proliferative neoplasms e.g. chronic phase CML or EBV PCR. As LGL is associated with STAT3 mutations which could be checked by next nation sequencing, if needed. Otherwise recommend observation at this point Came for follow-up, denies any specific complaints, no fever chills, no nausea or vomiting, no diarrhea or constipation, no night sweats, no weight loss, no peripheral lymphadenopathy, no recurrent fever, no abdominal fullness. Medications: Aspirin Adult 1 Tablet (of 325 mg) Oral daily, Atorvastatin Calcium 0.5 Tablet (of 80 mg) Oral daily, Cholecalciferol 1 Tablet (of 2000 Units) Oral daily, Fish Oil 1 Capsule (of 1000 mg) Oral b.i.d., Gabapentin 1 Capsule (of 300 mg) Oral t.i.d., Loratadine 1 Tablet (of 10 mg) Oral daily, metFORMIN HCl 1 Tablet (of 1000 mg) Oral b.i.d., NovoLOG Mix 70/30 60 Units (of (70-30) 100 Units/mL) Subcutaneous ac pm, NovoLOG Mix 70/30 90 Units (of (70-30) 100 Units/mL) Subcutaneous every am, Prazosin HCl 1 Capsule (of 1 mg) Oral at bedtime, Salicylic Acid 1 (17 %) Gel (jelly) Topical daily, Sertraline HCl 1.5 Tablet (of 100 mg) Oral daily, Urea 1 (10 %) Cream Topical b.i.d. Allergies: No Known Allergies. Review of Systems: Review of Systems is not available for this patient. Vital Signs: Performed on Sep 27, 2021 15:26 Height - 66.00 in Weight - 271 lbs (LOW) BSA - 2.28 sq.m BMI - 43.74 (HIGH) Temperature - 97.0 F (LOW) Pulse - 91 /min Respiration - 18 /min BP - 147/82 mm(hg) (HIGH) O2 Sat - 96 % Pain - 8 Fatigue - 0 Performance Status: 0 - Fully active, able to carry on all predisease activities without restrictions. (ECOG) Physical Examination: ENMT - No mouth sores, no thrush, no jaundice, no cervical or axillary lymphadenopathy, Respiratory - Poor air entry otherwise clear, Cardiovascular - Regular rate and rhythm of heart, Abdomen - Soft, bowel sounds present, Extremities - No visible edema. Lab/Imaging: Most recent lab results are not available for this patient. 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 Melanocytes are proportionately decreased but exhibit immunophenotypic evidence of full maturation with no detectable aberrant marker expression. 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 TCRG T-cell receptor gamma gene detected by PCR, consistent with presence of clonal T-cell population except with immature lymphoid malignancies where clonal TCRG rearrangements may recur in other lineages In nonneoplastic tissue TCRG gene rearrangement is negative but false positive can occasionally be seen in autoimmune disease, and reactive T-cell expansionin blood CBC done on 03/06/2019 showed white blood count 16,000 hemoglobin 15.7 crit 48.9 platelets 444,000 absolute lymphocyte count 5.8, absolute neutrophil count 7.94 Plan: Discussed with patient regarding his labs white blood count 12 compared to 14.4 previously hemoglobin 14.8 hematocrit 45.9 platelets 491,000 absolute lymphocyte count 3200 compared to 5000 previously CMP within normal limits LDH 156 compared to 282 previously Clinically, patient doing well with no new signs symptoms, no B symptoms, on exam no peripheral lymphadenopathy his follow-up CBC shows improvement in his isolated leukocytosis and normalization of lymphocytosis, will continue to monitor and he will return to clinic in 6 months with CBC. Signed By: Debby Augustine M.D. <<Signature on File>>
== END 2021-09-27 13:21 | disposition home or self-care (01) ==
PROVIDERS: PCP Family Medicine; Visit Provider Internal Medicine Hematology & Oncology
DX: D47.Z9 Other specified neoplasms of uncertain behavior of lymphoid, hematopoietic and related tissue (principal); D72.820 Lymphocytosis (symptomatic); Z79.899 Other long term (current) drug therapy
CPT/HCPCS: 36415; 80053; 83615; 85025; 99214

== ENCOUNTER 2022-03-30 08:20 | Oncology outpatient (recurring) (ONCR) | payer OTHER, SELFPAY ==
[2022-03-30 08:42] LABS: Basophils # 0.1 10^3/uL (0.0-0.1); Basophils % 0.5 %; Eosinophils # 0.6 10^3/uL (0.0-0.8); Eosinophils % 3.6 %; Hematocrit 45.4 % (42.0-52.0); Hemoglobin 14.7 g/dL (11.7-16.6); Lymphocytes # 5.1 10^3/uL (0.8-4.8); Lymphocytes % 32.1 %; Mean Corpuscular HGB Conc 32.4 g/dL (30.0-36.0); Mean Corpuscular Hemoglobin 30.3 pg (28.0-34.0); Mean Corpuscular Volume 93.6 fl (80-94); Mean Platelet Volume 10.9 fL (7.4-10.4); Monocytes # 1.2 10^3/uL (0.2-0.9); Monocytes % 7.8 %; Neutrophils # 8.89 10^3/uL (1.8-7.7); Neutrophils % 55.7 %; Nucleated Red Blood Cells % 0 %; Platelet Count 393 10^3/cmm (130-400); Red Blood Count 4.85 10^6/uL (4.1-5.3); Red Cell Distribution Width 14.4 % (12.1-15.1)
[2022-03-30 08:58] LABS: Alanine Aminotransferase 15 U/L (0-41); Albumin Level 3.5 g/dL (3.5-5.2); Alkaline Phosphatase 101 U/L (40-130); Anion Gap 17.3 (5-19); Aspartate Amino Transferase 18 U/L (0-40); Blood Urea Nitrogen 18 mg/dL (8-23); Calcium 8.9 mg/dL (8.5-10.5); Carbon Dioxide 22 mmol/L (22-29); Chloride 106 mmol/L (98-107); Globulin 2.8 g/dL (1.3-4.6); Glomerular Filtration Rate 66.4 mL/min (90-130); Glucose 176 mg/dL (65-115); Lactate Dehydrogenase 173 U/L (135-225); Osmolality Calculated 298 mOsm/kg (285-295); Potassium 4.3 mmol/L (3.5-5.1); Sodium 141 mmol/L (136-145); Total Bilirubin 0.2 mg/dL (0.15-1.2); Total Protein 6.3 g/dL (6.6-8.7)
== END 2022-04-20 23:59 | disposition home or self-care (01) ==
PROVIDERS: Nurse Practitioner; PCP Family Medicine; Visit Provider Internal Medicine Hematology & Oncology
DX: D72.829 Elevated white blood cell count, unspecified (principal); D72.820 Lymphocytosis (symptomatic); Z87.891 Personal history of nicotine dependence
CPT/HCPCS: 36415; 80053; 83615; 85025; 99214

== ENCOUNTER 2022-09-28 08:55 | Oncology outpatient (recurring) (ONCR) | payer OTHER, SELFPAY ==
[2022-09-28 09:24] LABS: Basophils # 0.1 10^3/uL (0.0-0.1); Basophils % 0.6 %; Eosinophils # 0.8 10^3/uL (0.0-0.8); Hematocrit 49.1 % (42.0-52.0); Hemoglobin 15.5 g/dL (11.7-16.6); Lymphocytes # 4.9 10^3/uL (0.8-4.8); Mean Corpuscular HGB Conc 31.6 g/dL (30.0-36.0); Mean Corpuscular Volume 98.2 fl (80-94); Mean Platelet Volume 10.7 fL (7.4-10.4); Monocytes % 6.5 %; Neutrophils # 8.14 10^3/uL (1.8-7.7); Neutrophils % 54.8 %; Nucleated Red Blood Cells % 0 %; Platelet Count 365 10^3/cmm (130-400); Red Cell Distribution Width 14.5 % (12.1-15.1); White Blood Count 14.9 10^3/uL (4.0-10.0)
[2022-09-28 10:32] LABS: Lactate Dehydrogenase 188 U/L (135-225)
== END 2022-10-19 23:59 | disposition home or self-care (01) ==
PROVIDERS: PCP Family Medicine; Visit Provider Internal Medicine Hematology & Oncology
DX: D72.9 Disorder of white blood cells, unspecified (principal); D72.820 Lymphocytosis (symptomatic); Z87.891 Personal history of nicotine dependence
CPT/HCPCS: 83615; 85025; 99214

== ENCOUNTER → 2022-11-15 07:51 | Outpatient (BNVA) | payer OTHER, SELFPAY | PROVIDERS: PCP Family Medicine; Visit Provider Nurse Practitioner Family | DX: L57.0 Actinic keratosis (principal); L91.8 Other hypertrophic disorders of the skin; D22.5 Melanocytic nevi of trunk; L81.4 Other melanin hyperpigmentation; Z71.89 Other specified counseling; L85.3 Xerosis cutis; D69.2 Other nonthrombocytopenic purpura; L57.8 Other skin changes due to chronic exposure to nonionizing radiation | CPT/HCPCS: 11102; 11200; 17000; 17003; 99203 ==

== ENCOUNTER 2023-04-05 08:53 | Oncology outpatient (recurring) (ONCR) | payer OTHER, SELFPAY ==
[2023-04-05 09:06] VITALS: BP 133/80; PULSE 90; RESP 18; TEMP 37.2; O2SAT 94; BMI 43.0; BMI 43.1
[2023-04-05 09:42] LABS: Basophils # 0.1 10^3/uL (0.0-0.1); Basophils % 0.7 %; Eosinophils # 0.7 10^3/uL (0.0-0.8); Eosinophils % 5.6 %; Hematocrit 46.7 % (37-53); Lymphocytes # 3.1 10^3/uL (0.8-4.8); Lymphocytes % 26.4 %; Mean Corpuscular HGB Conc 32.5 g/dL (30-55); Mean Corpuscular Hemoglobin 30.7 pg (27-33); Mean Corpuscular Volume 94.3 fl (82-101); Mean Platelet Volume 10.4 fL (7.4-10.4); Monocytes # 0.8 10^3/uL (0.2-0.9); Monocytes % 6.5 %; Neutrophils # 7.18 10^3/uL (1.8-7.7); Neutrophils % 60.5 %; Nucleated Red Blood Cells % 0 %; Platelet Count 383 10^3/cmm (157-399); Red Blood Count 4.95 10^6/uL (3.85-5.65); Red Cell Distribution Width 14.3 % (12.1-15.1); White Blood Count 11.87 10^3/uL (3.29-11.43)
[2023-04-05 10:09] LABS: Alanine Aminotransferase 14 U/L (0-41); Albumin Level 4.1 g/dL (3.5-5.2); Alkaline Phosphatase 108 U/L (40-130); Anion Gap 14.3 (5-19); Aspartate Amino Transferase 15 U/L (0-40); Blood Urea Nitrogen 21 mg/dL (8-23); Calcium 8.8 mg/dL (8.5-10.5); Carbon Dioxide 27 mmol/L (22-29); Chloride 105 mmol/L (98-107); Globulin 2.6 g/dL (1.3-4.6); Glomerular Filtration Rate 66.2 mL/min (90-130); Glucose 118 mg/dL (65-115); Lactate Dehydrogenase 147 U/L (135-225); Osmolality Calculated 298 mOsm/kg (285-295); Potassium 4.3 mmol/L (3.5-5.1); Sodium 142 mmol/L (136-145); Total Bilirubin 0.3 mg/dL (0.15-1.2); Total Protein 6.7 g/dL (6.6-8.7)
[2023-04-11 12:10] LABS: Leukemia Profile (BBPL) See Report; Lymphoma Profile (BBPL) See Report
== END 2023-04-20 23:59 | disposition home or self-care (01) ==
PROVIDERS: Internal Medicine Medical Oncology; PCP Family Medicine; Visit Provider Internal Medicine Hematology & Oncology
DX: D72.820 Lymphocytosis (symptomatic) (principal); D72.9 Disorder of white blood cells, unspecified; Z87.891 Personal history of nicotine dependence; Z53.9 Procedure and treatment not carried out, unspecified reason
CPT/HCPCS: 36415; 80053; 83615; 85025; 88184; 88185; 99214

== ENCOUNTER 2023-10-11 07:48 | Oncology outpatient (recurring) (ONCR) | payer OTHER, SELFPAY ==
[2023-10-11 08:10] LABS: Basophils # 0.1 10^3/uL (0.0-0.1); Basophils % 0.6 %; Eosinophils # 0.6 10^3/uL (0.0-0.8); Eosinophils % 5.7 %; Hematocrit 47.4 % (37-53); Lymphocytes # 4.2 10^3/uL (0.8-4.8); Lymphocytes % 37.9 %; Mean Corpuscular HGB Conc 32.9 g/dL (30-55); Mean Corpuscular Hemoglobin 30.6 pg (27-33); Mean Corpuscular Volume 93.1 fl (82-101); Mean Platelet Volume 10.5 fL (7.4-10.4); Monocytes # 0.7 10^3/uL (0.2-0.9); Monocytes % 6.1 %; Neutrophils # 5.46 10^3/uL (1.8-7.7); Neutrophils % 49.4 %; Nucleated Red Blood Cells % 0 %; Platelet Count 327 10^3/cmm (157-399); Red Blood Count 5.09 10^6/uL (3.85-5.65); Red Cell Distribution Width 14.4 % (12.1-15.1); White Blood Count 11.05 10^3/uL (3.29-11.43)
[2023-10-11 08:28] LABS: Alanine Aminotransferase 11 U/L (0-41); Albumin Level 3.7 g/dL (3.5-5.2); Alkaline Phosphatase 89 U/L (40-130); Aspartate Amino Transferase 14 U/L (0-40); Blood Urea Nitrogen 15 mg/dL (8-23); Calcium 8.3 mg/dL (8.5-10.5); Carbon Dioxide 24 mmol/L (22-29); Chloride 106 mmol/L (98-107); Globulin 2.4 g/dL (1.3-4.6); Glucose 127 mg/dL (65-115); Lactate Dehydrogenase 140 U/L (135-225); Osmolality Calculated 294 mOsm/kg (285-295); Sodium 141 mmol/L (136-145); Total Bilirubin 0.2 mg/dL (0.15-1.2); Total Protein 6.1 g/dL (6.6-8.7)
== END 2023-10-20 23:59 | disposition home or self-care (01) ==
PROVIDERS: PCP Family Medicine; Visit Provider Nurse Practitioner Family
DX: D72.820 Lymphocytosis (symptomatic) (principal); D72.9 Disorder of white blood cells, unspecified; Z87.891 Personal history of nicotine dependence; Z79.899 Other long term (current) drug therapy; C91.Z0 Other lymphoid leukemia not having achieved remission
CPT/HCPCS: 36415; 80053; 83615; 85025; 99213

== ENCOUNTER 2024-04-10 07:57 | Oncology outpatient (recurring) (ONCR) | payer OTHER, SELFPAY ==
[2024-04-10 08:46] LABS: Basophils # 0.1 10^3/uL (0.0-0.1); Basophils % 0.5 %; Eosinophils # 0.3 10^3/uL (0.0-0.8); Eosinophils % 2.7 %; Hematocrit 50.5 % (37-53); Lymphocytes # 2.6 10^3/uL (0.8-4.8); Lymphocytes % 25.2 %; Mean Corpuscular HGB Conc 31.7 g/dL (30-55); Mean Corpuscular Hemoglobin 30.4 pg (27-33); Mean Platelet Volume 10.5 fL (7.4-10.4); Monocytes # 0.8 10^3/uL (0.2-0.9); Monocytes % 7.5 %; Neutrophils # 6.67 10^3/uL (1.8-7.7); Neutrophils % 63.8 %; Nucleated Red Blood Cells % 0 %; Platelet Count 364 10^3/cmm (157-399); Red Blood Count 5.26 10^6/uL (3.85-5.65); Red Cell Distribution Width 14.6 % (12.1-15.1); White Blood Count 10.44 10^3/uL (3.29-11.43)
[2024-04-10 09:01] LABS: Alanine Aminotransferase 11 U/L (0-41); Albumin Level 3.9 g/dL (3.5-5.2); Alkaline Phosphatase 102 U/L (40-130); Anion Gap 13.5 (5-19); Aspartate Amino Transferase 16 U/L (0-40); Blood Urea Nitrogen 14 mg/dL (8-23); Calcium 8.7 mg/dL (8.5-10.5); Carbon Dioxide 28 mmol/L (22-29); Chloride 106 mmol/L (98-107); Globulin 2.7 g/dL (1.3-4.6); Glucose 126 mg/dL (65-115); Lactate Dehydrogenase 147 U/L (135-225); Osmolality Calculated 298 mOsm/kg (285-295); Potassium 4.5 mmol/L (3.5-5.1); Sodium 143 mmol/L (136-145); Total Bilirubin 0.3 mg/dL (0.15-1.2); Total Protein 6.6 g/dL (6.6-8.7)
== END 2024-04-20 23:59 | disposition home or self-care (01) ==
PROVIDERS: PCP Family Medicine; Visit Provider Nurse Practitioner Family
DX: D47.9 Neoplasm of uncertain behavior of lymphoid, hematopoietic and related tissue, unspecified
CPT/HCPCS: 36415; 80053; 83615; 85025; 99214

== ENCOUNTER 2024-10-23 07:57 | Oncology outpatient (recurring) (ONCR) | payer OTHER, SELFPAY ==
[2024-10-23 08:38] LABS: Basophils # 0.1 10^3/uL (0.0-0.1); Basophils % 0.7 %; Eosinophils # 0.5 10^3/uL (0.0-0.8); Hematocrit 46.4 % (37-53); Mean Corpuscular HGB Conc 32.8 g/dL (30-55); Mean Corpuscular Hemoglobin 31.3 pg (27-33); Mean Corpuscular Volume 95.5 fl (82-101); Mean Platelet Volume 10.8 fL (7.4-10.4); Monocytes # 0.6 10^3/uL (0.2-0.9); Neutrophils # 6.36 10^3/uL (1.8-7.7); Nucleated Red Blood Cells % 0 %; Platelet Count 325 10^3/cmm (157-399); Red Blood Count 4.86 10^6/uL (3.85-5.65); Red Cell Distribution Width 14.6 % (12.1-15.1)
[2024-10-23 08:50] LABS: Alanine Aminotransferase 13 U/L (0-41); Albumin Level 3.6 g/dL (3.5-5.2); Alkaline Phosphatase 86 U/L (40-130); Anion Gap 18.1 (5-19); Aspartate Amino Transferase 14 U/L (0-40); Blood Urea Nitrogen 20 mg/dL (8-23); Calcium 8.4 mg/dL (8.5-10.5); Carbon Dioxide 23 mmol/L (22-29); Chloride 110 mmol/L (98-107); Globulin 2.2 g/dL (1.3-4.6); Glucose 156 mg/dL (65-115); Lactate Dehydrogenase 158 U/L (135-225); Osmolality Calculated 310 mOsm/kg (285-295); Potassium 4.1 mmol/L (3.5-5.1); Sodium 147 mmol/L (136-145); Total Bilirubin 0.2 mg/dL (0.15-1.2); Total Protein 5.8 g/dL (6.6-8.7)
== END 2024-11-18 23:59 | disposition home or self-care (01) ==
PROVIDERS: PCP Family Medicine; Visit Provider Nurse Practitioner Family
DX: D47.9 Neoplasm of uncertain behavior of lymphoid, hematopoietic and related tissue, unspecified (principal); R03.0 Elevated blood-pressure reading, without diagnosis of hypertension
CPT/HCPCS: 36415; 80053; 83615; 85025; 99214

== ENCOUNTER 2025-04-23 07:45 | Oncology outpatient (recurring) (ONCR) | payer OTHER, SELFPAY ==
[2025-04-23 08:07] LABS: Hematocrit 47.0 % (37-53); Hemoglobin 15.00 g/dL (11.27-16.99); Mean Corpuscular HGB Conc 31.9 g/dL (30-55); Mean Corpuscular Hemoglobin 30.1 pg (27-33); Mean Corpuscular Volume 94.4 fl (82-101); Nucleated Red Blood Cells % 0 %; Platelet Count 305 10^3/cmm (157-399); Red Blood Count 4.98 10^6/uL (3.85-5.65); White Blood Count 12.80 10^3/uL (3.29-11.43)
[2025-04-23 08:25] LABS: Alanine Aminotransferase 13 U/L (0-41); Albumin Level 3.8 g/dL (3.5-5.2); Alkaline Phosphatase 108 U/L (40-130); Anion Gap 19.2 (5-19); Aspartate Amino Transferase 19 U/L (0-40); Blood Urea Nitrogen 16 mg/dL (8-23); Calcium 8.7 mg/dL (8.5-10.5); Carbon Dioxide 22 mmol/L (22-29); Chloride 108 mmol/L (98-107); Creatinine Clr Calc Pharmacy 82.8161; Globulin 2.7 g/dL (1.3-4.6); Glucose 155 mg/dL (65-115); Osmolality Calculated 304 mOsm/kg (285-295); Potassium 4.2 mmol/L (3.5-5.1); Sodium 145 mmol/L (136-145); Total Protein 6.5 g/dL (6.6-8.7)
== END 2025-05-21 23:59 | disposition home or self-care (01) ==
PROVIDERS: PCP Family Medicine; Visit Provider Nurse Practitioner Family
DX: D47.9 Neoplasm of uncertain behavior of lymphoid, hematopoietic and related tissue, unspecified (principal); R03.0 Elevated blood-pressure reading, without diagnosis of hypertension
CPT/HCPCS: 36415; 80053; 83615; 85025; 99213